=== PATIENT | female | born 1935 | race Caucasian/White ===

== ENCOUNTER 2017-10-01 11:17 | Inpatient (IN) | payer MEDICARE ==
[~2017-10-01] VITALS: Ht 157.5 cm; Wt 62.3 kg
[2017-10-01 11:17] VITALS: BP 153/75; PULSE 77; RESP 20; TEMP 97.7; O2SAT 94
[2017-10-01] MEDS ORDERED: traMADol HCL 50 MG TAB PO ONE (11:30)
[2017-10-01] MEDS ORDERED: PROM25TA10 PO (11:40)
[2017-10-01] MEDS ORDERED: ESCI20TA PO (11:40)
[2017-10-01] MEDS ORDERED: ALPR1TAB3 PO (11:40)
[2017-10-01] MEDS ORDERED: QUET1TAB8 PO (11:40)
--- NOTE | 2017-10-01 11:46 | PD ---
HPI Chief Complaint: Fall Time Seen by Provider: 11:22 Travel History International Travel<30 days: No Contact w/Intl Traveler<30days: No Traveled to known affect area: No History of Present Illness HPI Patient is an 81-year-old female presents the emergency department for evaluation after a mechanical fall. She is coming by her caregiver who states that she ergot her feet tangled when she was turning tripped and fell backwards. She thinks that the patient also hit her head. She has a history of dementia but is fairly well-functioning at baseline carries on conversation is only had mild memory deficits. She normally is very active. The patient complains only of right lower back pain and flank pain. She denies any chest pain shortness of breath abdominal pain nausea or vomiting, denies any neck pain or headache. States symptoms are moderate, low back, context of fall, associated sinus symptoms as above PFSH Past Medical History Narrative Medical Dementia, dementia, heartburn, Past Surgical History Narrative Surgical Appendectomy, left lumpectomy. Social History Tobacco Use: No Allergies-Medications (Allergen,Severity, Reaction): Coded Allergies: shrimp (Verified Allergy, Unknown, 10/01/17) Reported Meds & Prescriptions Reported Meds & Active Scripts Active Reported Quetiapine (Quetiapine Fumarate) 100 Mg Tab 100 Mg PO HS Phenergan (Promethazine HCl) 25 Mg Tablet 25 Mg PO DAILY Escitalopram (Escitalopram Oxalate) 20 Mg Tab 20 Mg PO DAILY Review of Systems Except as stated in HPI: all other systems reviewed are Neg Physical Exam Narrative GENERAL: Well-developed well-nourished no history she is in full spinal package on arrival. SKIN: Focused skin assessment warm/dry. HEAD: Atraumatic. Normocephalic. No garcia signs or raccoon EYES: Pupils equal and round. No scleral icterus. No injection or drainage. ENT: No nasal bleeding or discharge. Mucous membranes pink and moist. NECK: Trachea midline. No JVD. CARDIOVASCULAR: Regular rate and rhythm. No murmur appreciated. RESPIRATORY: No accessory muscle use. Clear to auscultation. Breath sounds equal bilaterally. GASTROINTESTINAL: Abdomen soft, non-tender, nondistended. Hepatic and splenic margins not palpable. MUSCULOSKELETAL: No obvious deformities. No clubbing. No cyanosis. No edema. No appreciable midline CT or L-spine tenderness, no step-off, pelvis is stable. Tremors are atraumatic. Pupils motor and sensory intact distally in all 4 extremities. The patient does have some tenderness on the right flank over the inferior most rib cage which is most significant paraspinally. NEUROLOGICAL: Awake and alert. No obvious cranial nerve deficits. Motor grossly within normal limits. Normal speech. PSYCHIATRIC: Appropriate mood and affect; insight and judgment normal. Data Data Last Documented VS Vital Signs Date Time Temp Pulse Resp B/P (MAP) Pulse Ox O2 Delivery O2 Flow Rate FiO2 10/01/17 14:45 88 18 156/88 (110) 92 Room Air 10/01/17 11:17 97.7 Orders Orders Hip, Uni(Ap&Lat) W Ap Pelvis (10/01/17 ) Chest, Single Ap (10/01/17 ) Ct Brain W/O Iv Contrast(Rout) (10/01/17 ) Ct Cerv Spine W/O Contrast (10/01/17 ) Ct Lumb Spine W/O Contrast (10/01/17 ) Tramadol (Ultram) (10/01/17 11:30) Basic Metabolic Panel (Bmp) (10/01/17 13:58) Complete Blood Count With Diff (10/01/17 13:58) Urinalysis - C+S If Indicated (10/01/17 13:58) Iv Access Insert/Monitor (10/01/17 13:58) Ecg Monitoring (10/01/17 13:58) Oximetry (10/01/17 13:58) Sodium Chloride 0.9% Flush (Ns Flush) (10/01/17 14:00) TLSO (10/01/17 ) Admit Order (Ed Use Only) (10/01/17 ) Labs Laboratory Tests Test 10/01/17 13:25 10/01/17 14:10 Urine Collection Type CLEAN CATCH Urine Color YELLOW Urine Turbidity CLEAR Urine pH 6.5 Urine Specific [place] 1.017 Urine Protein NEG mg/dL Urine Glucose (UA) NEG mg/dL Urine Ketones NEG mg/dL Urine Occult Blood NEG Urine Nitrite NEG Urine Bilirubin NEG Urine Leukocyte Esterase NEG Urine Squamous Epithelial Cells 0-5 /hpf Urine Amorphous Sediment SMALL Urine Mucus FEW /lpf Microscopic Urinalysis Comment CULT NOT INDICATED White Blood Count 11.9 TH/MM3 Red Blood Count 4.74 MIL/MM3 Hemoglobin 13.4 GM/DL Hematocrit 40.9 % Mean Corpuscular Volume 86.3 FL Mean Corpuscular Hemoglobin 28.3 PG Mean Corpuscular Hemoglobin Concent 32.8 % Red Cell Distribution Width 13.8 % Platelet Count 226 TH/MM3 Mean Platelet Volume 7.0 FL Neutrophils (%) (Auto) 83.9 % Lymphocytes (%) (Auto) 9.5 % Monocytes (%) (Auto) 3.8 % Eosinophils (%) (Auto) 0.2 % Basophils (%) (Auto) 2.6 % Neutrophils # (Auto) 10.0 TH/MM3 Lymphocytes # (Auto) 1.1 TH/MM3 Monocytes # (Auto) 0.5 TH/MM3 Eosinophils # (Auto) 0.0 TH/MM3 Basophils # (Auto) 0.3 TH/MM3 CBC Comment DIFF FINAL Differential Comment Blood Urea Nitrogen 22 MG/DL Creatinine 1.10 MG/DL Random Glucose 108 MG/DL Calcium Level 8.5 MG/DL Sodium Level 137 MEQ/L Potassium Level 4.0 MEQ/L Chloride Level 106 MEQ/L Carbon Dioxide Level 24.7 MEQ/L Anion Gap 6 MEQ/L Estimat Glomerular Filtration Rate 48 ML/MIN [facility] Medical Decision Making Medical Screen Exam Complete: Yes Emergency Medical Condition: Yes Differential Diagnosis Rib fracture, back fracture, head injury, neck injury, internal injury unlikely. Narrative Course Patient presented to the emergency department for evaluation of right sided low back pain/flank pain after a mechanical fall. CT head and C-spine negative, CT of the L-spine shows a compression fracture of T12 with some retropulsion, neurologically intact, discussed with Dr. Pires for surgical options would like transfer to the main hospital for consultation, she still having some discomfort, apparently mildly disoriented but still very active at baseline. She is accompanied by family who agree for admission for surgical consultation, orders for TLSO brace have been placed will be placed when she gets to the main hospital, discussed with Dr. Velazquez for admission Diagnosis Primary Impression: T12 compression fracture Admitting Information Admitting Physician Requests: Observation Scripts Calcitonin ([place]) Nasal [place] (Calcitonin ([place] [employer]) Nasal [place]) 200 Units/Act Soln 1 SPRAY NASAL DAILY for Osteoporosis, #3.7 ML 0 Refills Alternate nostrils daily. Prov: Traci Figueredo MD 10/03/17 Hydrocodone/Acetaminophen (Hydrocodone-Acetamin 5-325 mg) 5 Mg-325 Mg Tablet 1 TAB PO Q6H Y for pain , #30 MG Prov: Traci Figueredo MD 10/03/17 Alprazolam (Alprazolam) 1 Mg Tab 1 MG PO BID Y for ANXIETY, #10 TAB 0 Refills Prov: Traci Figueredo MD 10/03/17 Condition: Stable Brando Ortega MD Oct 01, 2017 11:46
--- NOTE | 2017-10-01 12:31 | RADRPT ---
EXAM DATE/TIME: 10/01/2017 11:43 [facility] COMPARISON: No previous studies available for comparison. INDICATIONS : Trauma. Fall. RADIATION DOSE: 64.55 CTDIvol (mGy) MEDICAL HISTORY : Dementia. Carcinoma, breast. SURGICAL HISTORY : Appendectomy. ENCOUNTER: Initial ACUITY: 1 day PAIN SCALE: 0/10 LOCATION: cranial TECHNIQUE: Multiple contiguous axial images were obtained of the head. Using automated exposure control and adj ustment of the mA and/or kV according to patient size, radiation dose was kept as low as reasonably a chievable to obtain optimal diagnostic quality images. DICOM format image data is available electro nically for review and comparison. FINDINGS: CEREBRUM: The ventricles, sulci, and basal cisterns are prominent characteristic of moderate central and cortic al atrophy.. No evidence of midline shift, mass lesion, hemorrhage or acute infarction. No extra-ax ial fluid collections are seen. POSTERIOR FOSSA: The cerebellum and brainstem are intact. The 4th ventricle is midline. The cerebellopontine angle i s unremarkable. EXTRACRANIAL: The visualized portion of the orbits is intact. SKULL: The calvaria is intact. No evidence of skull fracture. CONCLUSION: 1. Moderate central and cortical atrophy. 2. No acute findings in the brain. Michael Dean MD on October 01, 2017 at 12:27 Board Certified Radiologist. This report was verified electronically.
--- NOTE | 2017-10-01 12:42 | RADRPT ---
EXAM DATE/TIME: 10/01/2017 11:54 [facility] COMPARISON: No previous studies available for comparison. INDICATIONS : Posterior right hip pain after fall. MEDICAL HISTORY : None. SURGICAL HISTORY : None. ENCOUNTER: Initial ACUITY: 1 day PAIN SCORE: 8/10 LOCATION: Right hip FINDINGS: The osseous structures are osteopenic. The bony pelvic ring is intact. The primary and secondary trab ecular pattern of the right femoral neck is intact. No fractures seen. The arcuate lines of the sacru m are symmetrical. Several calcified phleboliths in the pelvis. CONCLUSION: No evidence of fracture or dislocation. Michael Dean MD on October 01, 2017 at 12:34 Board Certified Radiologist. This report was verified electronically.
[2017-10-01 12:43] VITALS: BP 165/79; PULSE 76; RESP 20; O2SAT 92
--- NOTE | 2017-10-01 12:43 | RADRPT ---
EXAM DATE/TIME: 10/01/2017 11:54 [facility] COMPARISON: No previous studies available for comparison. INDICATIONS : Chest pain after fall. MEDICAL HISTORY : None. SURGICAL HISTORY : None. ENCOUNTER: Initial ACUITY: 1 day PAIN SCORE: 3/10 LOCATION: Bilateral chest FINDINGS: A single view of the chest demonstrates the lungs to be symmetrically aerated without evidence of mas s, infiltrate or effusion. No evidence of pneumothorax. The cardiomediastinal contours are unremarka ble. Osseous structures are intact. CONCLUSION: The lungs are clear. Michael Dean MD on October 01, 2017 at 12:40 Board Certified Radiologist. This report was verified electronically.
--- NOTE | 2017-10-01 13:03 | RADRPT ---
EXAM DATE/TIME: 10/01/2017 11:43 [facility] COMPARISON: No previous studies available for comparison. INDICATIONS : Trauma. Fall. RADIATION DOSE: 26.31 CTDIvol (mGy) MEDICAL HISTORY : Dementia. Carcinoma, breast. SURGICAL HISTORY : Appendectomy. ENCOUNTER: Initial ACUITY: 1 day PAIN SCALE: 0/10 LOCATION: neck TECHNIQUE: Volumetric scanning of the cervical spine was performed. Multiplanar reconstructions in the sagittal, coronal and oblique axial planes were performed. Using automated exposure control and adjustment o f the mA and/or kV according to patient size, radiation dose was kept as low as reasonably achievable to obtain optimal diagnostic quality images. DICOM format image data is available electronically f or review and comparison. FINDINGS: There is normal alignment of the vertebral bodies of the cervical spine and maintenance of vertebral body height. No evidence of spondylolisthesis. The facet joints are normal abdomen without evidence o f locked or perched facets. The atlantoaxial articulation is intact.. C2-C3: No fracture seen. The neural foramina are patent. C3-C4: No fracture seen. The neural foramina are patent. C4-C5: No fracture seen. The neural foramina are patent. C5-C6: No fracture seen. Moderate severity left-sided bony neural foraminal stenosis. C6-C7: No fracture seen. Moderate bilateral bony neural foraminal stenosis. C7-T1: No fracture seen. The neural foramina are patent. CONCLUSION: No evidence of fracture or spondylolisthesis. Mild to moderate arthrosis with neural foraminal stenos is. Michael Dean MD on October 01, 2017 at 12:54 Board Certified Radiologist. This report was verified electronically.
--- NOTE | 2017-10-01 13:07 | RADRPT ---
EXAM DATE/TIME: 10/01/2017 11:47 [facility] COMPARISON: No previous studies available for comparison. INDICATIONS : Trauma. Fall. Low back pain. RADIATION DOSE: 36.40 CTDIvol (mGy) MEDICAL HISTORY : Dementia. Carcinoma, breast. SURGICAL HISTORY : Appendectomy. ENCOUNTER: Initial ACUITY: 1 day PAIN SCALE: 10/10 LOCATION: Lumbar spine. TECHNIQUE: Volumetric scanning of the lumbar spine was performed. Multiplanar reconstructions in the sagittal, coronal and oblique axial planes were performed. Using automated exposure control and adjustment of the mA and/or kV according to patient size, radiation dose was kept as low as reasonably achievable t o obtain optimal diagnostic quality images. DICOM format image data is available electronically for review and comparison. FINDINGS: There is diffuse osteopenia with prominent vertical striations the trabecular pattern throughout the lumbar spine. There is a 50% compression fracture of the T12 vertebral body involving the superior en dplate and both anterior and posterior cortex. There is some mild posterior displacement of the poste rior superior cortex, causing approximately 4 mm indentation on the thecal sac. Several fracture line s extend to the junction with the left pedicle. T12-L1: There is flattening of the ventral margin of the thecal sac due to the impression fracture, left more prominent than on the right. The neural foramen remain patent. L1-L2: The thecal sac has a normal diameter. No evidence of disc bulge or protrusion. The neural foramina are patent bilaterally. L2-L3: The thecal sac has a normal diameter. No evidence of disc bulge or protrusion. The neural foramina are patent bilaterally. L3-L4: Broad-based bulging of the disc, more prominent left paracentral on the right side. No fracture seen. L4-L5: Broad-based bulging of the disc flattens the ventral margin of the thecal sac and extends into the ne uroforamen bilaterally. No fracture seen. L5-S1: Broad-based bulging of the disc contained within the epidural fat and there is no deformity of the th ecal sac and deviation of the S1 nerve roots. CONCLUSION: 1. 50% compression fracture of the T12 vertebral body extending into the junction with the left pedic le. 4 mm retropulsion of the posterior cortex of T12. 2. Mild disc bulging L3-S1. Michael Dean MD on October 01, 2017 at 13:00 Board Certified Radiologist. This report was verified electronically.
[2017-10-01] MEDS ORDERED: SODIUM CHLORIDE 0.9% FLUSH 10 ML FLUSH IV FLUSH PRN (14:00)
[2017-10-01 14:18] LABS: BASOPHIL # 0.3 TH/MM3 (0-0.2); BASOPHIL % 2.6 % (0.0-2.0); EOSINOPHIL % 0.2 % (0.0-4.0); HEMATOCRIT 40.9 % (35.0-46.0); HEMOGLOBIN 13.4 GM/DL (11.6-15.3); LYMPH % 9.5 % (9.0-44.0); LYMPHOCYTE # 1.1 TH/MM3 (1.0-4.8); MEAN CELL VOLUME 86.3 FL (80.0-100.0); MEAN CORPUSCULAR HEMOGLOBIN 28.3 PG (27.0-34.0); MEAN CORPUSCULAR HGB CONC 32.8 % (32.0-36.0); MONO % 3.8 % (0.0-8.0); MONOCYTE # 0.5 TH/MM3 (0-0.9); NEUT % 83.9 % (16.0-70.0); PLATELET COUNT 226 TH/MM3 (150-450); RED BLOOD COUNT 4.74 MIL/MM3 (4.00-5.30); RED CELL DISTRIBUTION WIDTH 13.8 % (11.6-17.2); WHITE BLOOD COUNT 11.9 TH/MM3 (4.0-11.0)
[2017-10-01 14:29] LABS: BICARBONATE 24.7 MEQ/L (21.0-32.0); CALCIUM 8.5 MG/DL (8.5-10.1)
[2017-10-01 14:33] LABS: CREATININE 1.1 MG/DL (0.50-1.00)
[2017-10-01 14:43] VITALS: O2SAT 92
[2017-10-01 14:45] VITALS: BP 156/88; PULSE 88; RESP 18; O2SAT 92
[2017-10-01 14:47] LABS: BILIRUBIN, URINE NEG (NEG); BLOOD, URINE NEG (NEG); GLUCOSE,URINE NEG (NEG); KETONE, URINE NEG (NEG); NITRITE,URINE NEG (NEG); PH, URINE 6.5 (5.0-8.5); URINE LEUKOCYTE ESTERASE NEG (NEG)
[2017-10-01 14:53] LABS: AMORPHOUS SEDIMENT, URINE SMALL; SQUAMOUS EPITHELIAL CELL URINE 0-5 /hpf (0-5); URINE COLOR YELLOW (YELLW/STRAW)
[2017-10-01 14:54] LABS: MUCUS URINE FEW /lpf (OCC)
[2017-10-01 16:14] VITALS: BP 149/79; PULSE 81; RESP 18; O2SAT 92
--- NOTE | 2017-10-01 16:57 | HHI.HP ---
[facility] Unknown Admission Diagnosis Fall, T12 compression fracture. Diagnoses: Chief Complaint: fall Travel History International Travel<30 Days: No Contact w/Intl Traveler <30 Da: No Traveled to Known Affected Are: No History of Present Illness 81 y/o WF being admitted with a traumatic compression fracture. Patient was brought in by ambulance at the request of the family. Patient was in her usual state of health until sometime earlier today when she was trying to ambulate and lost her footing and fell backwards onto her back striking her head on the floor. This was a witnessed fall by a family member who says that the patient did not lose consciousness at that the patient did yell out in pain. Further family did come over they attempted to move the patient but she yelled out in pain and they decided to leave her on the floor and await until the ambulance transported her. They noted that she yelled out more in pain when she was being manipulated to be placed on the stretcher. Patient denies any urinary or fecal incontinence. She reports intact sensation on her lower extremities. Patient denies having any chest pain during before after the incident and she admits that this was a mechanical fall that she simply lost her balance. She denies feeling weak in her legs. Family denies any frequent history of falling. Family member lines up the patient's medications for her including Phenergan, cervical, alprazolam, and escitalopram. Review of Systems Except as stated in HPI: all other systems reviewed are Neg Past Family Social History Past Medical History anxiety, dementia Allergies: Coded Allergies: shrimp (Verified Allergy, Unknown, 10/01/17) Family History No family history of vertebral compression fractures Social History No smoking history. Lives with the family member. Physical Exam Vital Signs Vital Signs Date Time Temp Pulse Resp B/P (MAP) Pulse Ox O2 Delivery O2 Flow Rate FiO2 10/01/17 16:14 81 18 149/79 (102) 92 Room Air 10/01/17 14:45 88 18 156/88 (110) 92 Room Air 10/01/17 14:43 92 Room Air 2/8/18 12:43 76 20 165/79 (107) 92 Room Air 10/01/17 11:17 97.7 77 20 153/75 (101) 94 10/01/17 11:17 94 Room Air Physical Exam VS: afebrile GENERAL: Elderly white female, lying in bed, mild diffuse tremoring SKIN: Warm and dry. EYES: No scleral icterus. No injection or drainage. ENT: No nasal bleeding or discharge. Mucous membranes pink and moist. CARDIOVASCULAR: Regular rate and rhythm. no murmurs RESPIRATORY: No accessory muscle use. Clear to auscultation. Breath sounds equal bilaterally. GASTROINTESTINAL: Abdomen soft, non-tender, nondistended. Extremities: No clubbing, cyanosis, or edema. No obvious deformities. MUSCULOSKELETAL: adequate muscle bulk and tone for age and habitus; patient is able to demonstrate active straight leg raising bilaterally up to 40 at which point she stops due to pain. She has intact sensation to pinprick over bilateral lower extremities NEUROLOGICAL: Awake and alert. No obvious cranial nerve deficits. No facial droop nor slurred speech noted. PSYCHIATRIC: Appropriate mood and affect; insight and judgment normal. Laboratory Laboratory Tests Test 10/01/17 13:25 10/01/17 14:10 Urine Collection Type CLEAN CATCH Urine Color YELLOW Urine Turbidity CLEAR Urine pH 6.5 Urine Specific [place] 1.017 Urine Protein NEG Urine Glucose (UA) NEG Urine Ketones NEG Urine Occult Blood NEG Urine Nitrite NEG Urine Bilirubin NEG Urine Leukocyte Esterase NEG Urine Squamous Epithelial Cells 0-5 Urine Amorphous Sediment SMALL Urine Mucus FEW Microscopic Urinalysis Comment CULT NOT INDICATED White Blood Count 11.9 Red Blood Count 4.74 Hemoglobin 13.4 Hematocrit 40.9 Mean Corpuscular Volume 86.3 Mean Corpuscular Hemoglobin 28.3 Mean Corpuscular Hemoglobin Concent 32.8 Red Cell Distribution Width 13.8 Platelet Count 226 Mean Platelet Volume 7.0 Neutrophils (%) (Auto) 83.9 Lymphocytes (%) (Auto) 9.5 Monocytes (%) (Auto) 3.8 Eosinophils (%) (Auto) 0.2 Basophils (%) (Auto) 2.6 Neutrophils # (Auto) 10.0 Lymphocytes # (Auto) 1.1 Monocytes # (Auto) 0.5 Eosinophils # (Auto) 0.0 Basophils # (Auto) 0.3 CBC Comment DIFF FINAL Differential Comment Blood Urea Nitrogen 22 Creatinine 1.10 Random Glucose 108 Calcium Level 8.5 Sodium Level 137 Potassium Level 4.0 Chloride Level 106 Carbon Dioxide Level 24.7 Anion Gap 6 Estimat Glomerular Filtration Rate 48 Result Diagram: 10/01/17 1410 10/01/17 1410 Imaging Last Impressions Lumbar Spine CT 10/01/17 0000 Signed Impressions: Service Date/Time: September 11:47 - CONCLUSION: 1. 50%% compression fracture of the T12 vertebral body extending into the junction with the left pedicle. 4 mm retropulsion of the posterior cortex of T12. 2. Mild disc bulging L3-S1. Michael Dean MD Hip and Pelvis X-Ray 10/01/17 0000 Signed Impressions: Service Date/Time: September 11:54 - CONCLUSION: No evidence of fracture or dislocation. Michael Dean MD Head CT 10/01/17 0000 Signed Impressions: Service Date/Time: September 11:43 - CONCLUSION: 1. Moderate central and cortical atrophy. 2. No acute findings in the brain. Michael Dean MD Chest X-Ray 10/01/17 0000 Signed Impressions: Service Date/Time: September 11:54 - CONCLUSION: The lungs are clear. Michael Dean MD Cervical Spine CT 10/01/17 0000 Signed Impressions: Service Date/Time: September 11:43 - CONCLUSION: No evidence of fracture or spondylolisthesis. Mild to moderate arthrosis with neural foraminal stenosis. Michael Dean MD Caprini VTE Risk Assessment Caprini VTE Risk Assessment: Mod/High Risk (score >= 2) Caprini Risk Assessment Model Point Value = 1 Point Value = 2 Point Value = 3 Point Value = 5 Age 41-60 Minor surgery BMI > 25 kg/m2 Swollen legs Varicose veins or History of unexplained or recurrent spontaneous Oral contraceptives or hormone replacement Sepsis (< 1 month) Serious lung disease, including pneumonia (< 1 month) Abnormal pulmonary function Acute myocardial infarction Congestive heart failure (< 1 month) History of inflammatory bowel disease Medical patient at bed rest Age 61-74 Arthroscopic surgery Major open surgery (> 45 min) Laparoscopic surgery (> 45 min) Malignancy Confined to bed (> 72 hours) Immobilizing plaster cast Central venous access Age >= 75 History of VTE Family history of VTE Factor V Leiden Prothrombin [id number] Lupus anticoagulant Anticardiolipin antibodies Elevated serum homocysteine Heparin-induced thrombocytopenia Other congenital or acquired thrombophilia Stroke (< 1 month) Elective arthroplasty Hip, pelvis, or leg fracture Acute spinal cord injury (< 1 month) Prophylaxis Regimen Total Risk Factor Score Risk Level Prophylaxis Regimen 0-1 Low Early ambulation 2 Moderate Order ONE of the following: *Sequential Compression Device (SCD) *Heparin 5000 units SQ BID 3-4 Higher Order ONE of the following medications: *Heparin 5000 units SQ TID *Enoxaparin/Lovenox 40 mg SQ daily (WT < 150 kg, CrCl > 30 mL/min) *Enoxaparin/Lovenox 30 mg SQ daily (WT < 150 kg, CrCl > 10-29 mL/min) *Enoxaparin/Lovenox 30 mg SQ BID (WT < 150 kg, CrCl > 30 mL/min) AND/OR *Sequential Compression Device (SCD) 5 or more Highest Order ONE of the following medications: *Heparin 5000 units SQ TID (Preferred with Epidurals) *Enoxaparin/Lovenox 40 mg SQ daily (WT < 150 kg, CrCl > 30 mL/min) *Enoxaparin/Lovenox 30 mg SQ daily (WT < 150 kg, CrCl > 10-29 mL/min) *Enoxaparin/Lovenox 30 mg SQ BID (WT < 150 kg, CrCl > 30 mL/min) AND *Sequential Compression Device (SCD) Assessment and Plan Assessment and Plan 81-year-old female being admitted for acute traumatic thoracic 50% compression fracture w/ no evidence of spinal cord compression - Patient will be transferred to the main hospital per neurosurgery, consulting neurosurgery. Pain control for now, holding off of NSAIDs in case of possible intervention. - per radiology read: "There is flattening of the ventral margin of the thecal sac due to the impression fracture, left more prominent than on the right. The neural foramen remain patent." - Fall precautions; can consult physical therapy and occupational therapy once cleared by neurosurgery - Bed rest until evaluated by neurosurgery - I independently review the chest x-ray which shows no acute infiltrate. Remaining imaging including head CT shows no acute fractures or hemorrhages. - tramadol and nasal calcitonin for pain Resume home medications of Xanax, Phenergan, escitalopram, and Seroquel. SCDs, no pharmacological anticoagulation in light of possible procedure. Physician Certification 2 Midnight Certification Type: Admission for Inpatient Services Order for Inpatient Services The services are ordered in accordance with Medicare regulations or non- Medicare payer requirements, as applicable. In the case of services not specified as inpatient-only, they are appropriately provided as inpatient services in accordance with the 2-midnight benchmark. Estimated LOS (days): 2 2 days is the estimated time the patient will need to remain in the hospital, assuming treatment plan goals are met and no additional complications. Post-Hospital Plan: Not yet determined Chan Spencer MD Oct 01, 2017 16:57
[2017-10-01] MEDS: traMADol HCL 50 MG TAB PO PRN ×2 (17:16→22:34)
[2017-10-01] MEDS: SODIUM CHLOR 0.9% 1000 ML INJ 1,000 ML IV SCH ×2 (17:20→20:04)
[2017-10-01 19:50] VITALS: BP 147/70; PULSE 85; RESP 20; TEMP 98.5; O2SAT 94
[2017-10-01] MEDS: ALPRAZolam 1 MG TAB PO PRN (21:00)
[2017-10-01] MEDS: QUEtiapine FUMARATE 100 MG TAB PO SCH (21:00)
[2017-10-02] VITALS: BP 132/82; PULSE 87; RESP 20; TEMP 98; O2SAT 98
[2017-10-02] MEDS ORDERED: ACETAMINOPHEN/HYDROcodone 325 MG/5 MG TAB PO ONE (00:45)
[2017-10-02 04:11] VITALS: BP 95/51; PULSE 78; RESP 20; TEMP 97; O2SAT 92
[2017-10-02] MEDS: CALCITONIN SALM 200 UNIT/SPRAY 3.7 ML BTLN NASAL SCH (08:13)
[2017-10-02] MEDS: PROMETHAZINE HCL 25 MG TAB PO SCH (08:13)
[2017-10-02 08:34] VITALS: BP 99/59; PULSE 72; RESP 16; TEMP 98.2; O2SAT 94
[2017-10-02 12:40] VITALS: BP 103/62; PULSE 73; RESP 16; TEMP 97.5; O2SAT 16
--- NOTE | 2017-10-02 13:04 | RADRPT ---
EXAM DATE/TIME: 10/02/2017 11:32 [place] COMPARISON: No previous studies available for comparison. INDICATIONS : Pain. Fall. MEDICAL HISTORY : Carcinoma, breast. Dementia. SURGICAL HISTORY : Breast lumpectomy. ENCOUNTER: Initial ACUITY: 1 day PAIN SCORE: 5/10 LOCATION: [facility] TECHNIQUE: Multiplanar multisequence MRI of the thoracic spine was performed. FINDINGS: Sagittal T1, T2 and inversion recovery images show a severe compression fracture through the T12 vert ebral body with marked loss of vertebral body heights. Vertebral body edema suggesting acute or subac sycuan injury. 3-5 mm retropulsed fragment encroaches on the anterior epidural space but there does not appear to result in significant spinal stenosis. Spinal canal is adequate all remaining levels. Bilat eral small pleural effusions with concomitant atelectatic changes on the right. Chronic appearing wed ge deformity of T4. T1-T2: Normal. T2-T3: The thecal sac has a normal diameter. No evidence of disc bulge or protrusion. T3-T4: The thecal sac has a normal diameter. No evidence of disc bulge or protrusion. T4-T5: The thecal sac has a normal diameter. No evidence of disc bulge or protrusion. T5-T6: The thecal sac has a normal diameter. No evidence of disc bulge or protrusion. T6-T7: The thecal sac has a normal diameter. No evidence of disc bulge or protrusion. T7-T8: The thecal sac has a normal diameter. No evidence of disc bulge or protrusion. T8-T9: The thecal sac has a normal diameter. No evidence of disc bulge or protrusion. T9-T10: The thecal sac has a normal diameter. No evidence of disc bulge or protrusion. T10-T11: The thecal sac has a normal diameter. No evidence of disc bulge or protrusion. T11-T12: The thecal sac has a normal diameter. No evidence of disc bulge or protrusion. T12-L1: Severe compression fracture of T12 with regional edema. Encroachment on the spinal canal with no obvi ous central nerve root or cord compromise. CONCLUSION: 1. Acute or subacute compression fracture of T12 with a 3-5 mm retropulsed fragment. Encroaches on th e intrathecal space but does not result in cord compromise. 2. Chronic appearing wedge deformity of T4. 3. Spinal canal is adequate all remaining levels. 4. Small bilateral pleural effusions, right greater than left with concomitant atelectatic changes in the right base. Moises Ray MD on October 02, 2017 at 12:57 Board Certified Radiologist. This report was verified electronically.
--- NOTE | 2017-10-02 13:23 | HHI.PR ---
Subjective Remarks Follow-up for fall and T12 compression fracture. Patient is resting in bed. No acute concerns. Son is at bedside. No fever or chills. Waiting for neurosurgery evaluation. Objective Vitals Vital Signs Date Time Temp Pulse Resp B/P (MAP) Pulse Ox O2 Delivery O2 Flow Rate FiO2 10/02/17 12:40 97.5 73 16 103/62 (76) 16 10/02/17 08:34 98.2 72 16 99/59 (72) 94 10/02/17 04:11 97.0 78 20 95/51 (66) 92 10/02/17 00:00 98.0 87 20 132/82 (99) 98 10/01/17 19:50 98.5 85 20 147/70 (95) 94 10/01/17 18:40 10/01/17 16:14 81 18 149/79 (102) 92 Room Air 10/01/17 14:45 88 18 156/88 (110) 92 Room Air 10/01/17 14:43 92 Room Air I/O 10/01/17 10/01/17 10/01/17 10/02/17 10/02/17 10/02/17 07:00 15:00 23:00 07:00 15:00 23:00 Intake Total 50 ml 409 ml Output Total 600 ml Balance -600 ml 50 ml 409 ml Intake IV Total 50 ml 409 ml Output Urine Total 600 ml # Voids 1 Result Diagram: 10/01/17 1410 10/01/17 1410 Imaging Last Impressions Lumbar Spine CT 10/01/17 0000 Signed Impressions: Service Date/Time: September 11:47 - CONCLUSION: 1. 50%% compression fracture of the T12 vertebral body extending into the junction with the left pedicle. 4 mm retropulsion of the posterior cortex of T12. 2. Mild disc bulging L3-S1. Michael Dean MD Hip and Pelvis X-Ray 10/01/17 0000 Signed Impressions: Service Date/Time: September 11:54 - CONCLUSION: No evidence of fracture or dislocation. Michael Dean MD Head CT 10/01/17 0000 Signed Impressions: Service Date/Time: September 11:43 - CONCLUSION: 1. Moderate central and cortical atrophy. 2. No acute findings in the brain. Michael Dean MD Chest X-Ray 10/01/17 0000 Signed Impressions: Service Date/Time: September 11:54 - CONCLUSION: The lungs are clear. Michael Dean MD Cervical Spine CT 10/01/17 0000 Signed Impressions: Service Date/Time: September 11:43 - CONCLUSION: No evidence of fracture or spondylolisthesis. Mild to moderate arthrosis with neural foraminal stenosis. Michael Dean MD Objective Remarks GENERAL: Alert, NAD. SKIN: Warm and dry. HEAD: Normocephalic. EYES: No scleral icterus. No injection or drainage. NECK: Supple, trachea midline. No JVD or lymphadenopathy. CARDIOVASCULAR: Regular rate and rhythm without murmurs, gallops, or rubs. RESPIRATORY: Breath sounds equal bilaterally. No accessory muscle use. GASTROINTESTINAL: Abdomen soft, non-tender, nondistended. MUSCULOSKELETAL: No cyanosis, or edema. Able to move all extremities. BACK: Nontender without obvious deformity. No CVA tenderness. Procedures None A/P Problem List: (1) Anxiety and depression ICD Code: F41.8 - Other specified anxiety disorders (2) T12 compression fracture ICD Code: S22.080A - Wedge compression fracture of T11-T12 vertebra, initial encounter for closed fracture Assessment and Plan 81-year-old female being admitted for acute traumatic thoracic 50% compression fracture w/ no evidence of spinal cord compression - Fall - T12 compression fracture - severe. - MRI thoracolumbar images reviewed by me - shows T12 compression fracture with edema. - No spinal stenosis - D/C Tramadol 50 mg every 6 hours when necessary. - Will use low dose [place] and acetaminophen PRN - Continue calcitonin 1 spray nasal daily - Neurosurgery consult pending. Patient will also likely need TLSO brace - PT and OT consulted. - Discussed with case management regarding referral to [facility] - Anxiety, depression - Continue Seroquel 100 mg daily at bedtime, Xanax 1 mg twice a day. - Continue escitalopram 20 mg by mouth daily Full code. SCDs. Consider pharmacological DVT prophylaxis if prolonged hospitalization is expected. Sharan Cates DO Oct 02, 2017 1:23 pm
[2017-10-02] MEDS ORDERED: ACETAMINOPHEN 500 MG CPLT PO PRN (13:30)
[2017-10-02] MEDS: ACETAMINOPHEN/HYDROcodone 325 MG/5 MG TAB PO PRN ×2 (14:13→21:07)
[2017-10-02] MEDS: SODIUM CHLOR 0.9% 1000 ML INJ 1,000 ML IV SCH ×2 (14:13→21:04)
[2017-10-02 16:50] VITALS: BP 140/70; PULSE 91; RESP 18; TEMP 97.7
[2017-10-02 20:00] VITALS: BP 161/83; PULSE 101; RESP 20; TEMP 97.2; O2SAT 90
[2017-10-02] MEDS ORDERED: CALCIUM CARBONATE 500 MG CHEWABLE TAB CHEW PRN (20:15)
--- NOTE | 2017-10-02 20:18 | MB ---
cc: FELISA BARTON M.D. DATE OF CONSULTATION: 10/02/2017. REASON FOR CONSULTATION: Low back pain with T12 fractures. HISTORY OF PRESENT ILLNESS: 81-year-old female was brought into the [facility] Emergency Room yesterday morning after a fall. She states she tripped and fell backwards although did not lose consciousness. Complains of severe lower thoracic back pain which radiates around the flank area. Denies any numbness or paresthesias in the lower extremities or any incontinence or weakness. Initially had some nausea and vomiting and headache but this has resolved and the back pain has improved but still is very painful to move. Workup included a lumbar spine CT scan which reveals a moderate T12 vertebral body compression fracture with slight retropulsion of the spinal canal. Cervical spine CT scan is negative. CT of the head is also negative for any acute findings. She was transferred [facility] and subsequently today has also received a thoracic spine MRI scan which does confirm this acute T12 moderate vertebral body compression fracture with slight retropulsion with overall mild spinal stenosis. No cord compression is noted. A chronic-appearing compression fracture at the T4 level is also noted. There are some pleural effusions with atelectasis noted also in the lungs. PAST MEDICAL HISTORY: 1. Dementia. 2. Anxiety. ALLERGIES: 1. SHRIMP. MEDICATIONS: 1. Alprazolam 1 milligram twice a day PRN. 2. Escitalopram 20 milligrams daily. 3. Phenergan 25 milligrams daily. 4. Quetiapine fumarate 100 milligrams at bedtime. SOCIAL HISTORY: She is a and resides with her son and tank filler who are with her in the hospital. She does not smoke cigarettes or drink alcohol. FAMILY HISTORY: Unremarkable. REVIEW OF SYSTEMS: Pertinent positives as mentioned in the history of present illness otherwise negative. LABORATORY FINDINGS White blood cell count 11.9, hemoglobin 13.4, platelet count is 226,000. Sodium 137, potassium 4.0, BUN 22, creatinine 1.0, glucose 108. PHYSICAL EXAMINATION: GENERAL CONDITION: This is an elderly female who is lying in bed in no distress. VITAL SIGNS: Temperature 98.2, pulse is 73, respiratory rate 16, blood pressure 103/62, oxygen saturation 94% on room air. HEAD: No garcia or raccoon sign. Normocephalic and atraumatic. NECK: The neck is supple with no guarding or rigidity. Trachea is midline. No lymphadenopathy. CHEST: Clear to auscultation bilaterally. HEART: Regular rate and rhythm. Normal S1 and S2. ABDOMEN: Abdomen soft and nontender. No hepatosplenomegaly. EXTREMITIES: No cyanosis, edema or deformities. SKIN: No abrasions or rashes or skin breakdown or pustules noted. NEUROLOGICAL EXAMINATION: She is awake, alert. Cranial nerves are grossly intact. Motor strength 5/5 in the upper and lower extremities. Negative Babinski. Speech is fluent. Light touch sensation intact. Normal reflexes. IMPRESSION: 1. Acute T12 moderate vertebral body compression fracture with slight retropulsion and chronic T4 vertebral body fracture without any significant stenosis. 2. Dementia. PLAN: 1. I have recommended pain control along with the use of a TLSO brace when out of bed for the T4 fracture. 2. She will benefit from physical therapy and rehabilitation until the pain is controlled and she is more ambulatory without requiring assistance. 3. At this time, the plan is for conservative management with a brace and the patient and family understand that the fracture may take three to four months to heal. 4. Recommend DVT prophylaxis also. 5. Once her pain is adequately controlled, then she can be discharged either rehab or home with physical therapy and follow up in the office in six weeks with thoracic spine x-rays. All their questions were answered and the patient and her son understand and are in agreement. MD ATIF Laurent/MARCELINA /4:17 PM /7:47 PM
[2017-10-02] MEDS: ALPRAZolam 1 MG TAB PO PRN (20:59)
[2017-10-02] MEDS: QUEtiapine FUMARATE 100 MG TAB PO SCH (20:59)
[2017-10-03] VITALS: BP 117/64; PULSE 89; RESP 18; TEMP 98.6; O2SAT 94
[2017-10-03 03:55] VITALS: BP 153/80; PULSE 99; RESP 20; TEMP 97.6; O2SAT 91
[2017-10-03 05:00] VITALS: O2SAT 94
[2017-10-03 08:00] VITALS: BP 157/74; PULSE 82; RESP 16; TEMP 98.5; O2SAT 92
[2017-10-03] MEDS: PROMETHAZINE HCL 25 MG TAB PO SCH (08:43)
[2017-10-03] MEDS ORDERED: ESCITALOPRAM OXALATE 20 MG TAB PO SCH (09:00)
[2017-10-03] MEDS: ACETAMINOPHEN/HYDROcodone 325 MG/5 MG TAB PO PRN (09:44)
[2017-10-03] MEDS: CALCITONIN SALM 200 UNIT/SPRAY 3.7 ML BTLN NASAL SCH (10:58)
[2017-10-03] MEDS ORDERED: HYDR-3516 PO (11:14)
[2017-10-03] MEDS ORDERED: CALC200S NASAL (11:14)
[2017-10-03] MEDS ORDERED: ALPR1TAB3 PO (11:14)
--- NOTE | 2017-10-03 11:16 | HHI.DS ---
Discharge Summary Admission Date Oct 01, 2017 at 15:20 Discharge Date: Oct 03, 2017 Admitting Diagnosis Fall, T12 compression fracture. (1) Anxiety and depression ICD Code: F41.8 - Other specified anxiety disorders (2) T12 compression fracture ICD Code: S22.080A - Wedge compression fracture of T11-T12 vertebra, initial encounter for closed fracture Procedures None Brief History - From Admission 81 y/o WF being admitted with a traumatic compression fracture. Patient was brought in by ambulance at the request of the family. Patient was in her usual state of health until sometime earlier today when she was trying to ambulate and lost her footing and fell backwards onto her back striking her head on the floor. This was a witnessed fall by a family member who says that the patient did not lose consciousness at that the patient did yell out in pain. Further family did come over they attempted to move the patient but she yelled out in pain and they decided to leave her on the floor and await until the ambulance transported her. They noted that she yelled out more in pain when she was being manipulated to be placed on the stretcher. Patient denies any urinary or fecal incontinence. She reports intact sensation on her lower extremities. Patient denies having any chest pain during before after the incident and she admits that this was a mechanical fall that she simply lost her balance. She denies feeling weak in her legs. Family denies any frequent history of falling. Family member lines up the patient's medications for her including Phenergan, cervical, alprazolam, and escitalopram. CBC/BMP: 10/01/17 1410 10/01/17 1410 Significant Findings Laboratory Tests Test 10/01/17 13:25 10/01/17 14:10 Urine Mucus FEW /lpf (OCC) White Blood Count 11.9 TH/MM3 (4.0-11.0) Neutrophils (%) (Auto) 83.9 % (16.0-70.0) Basophils (%) (Auto) 2.6 % (0.0-2.0) Neutrophils # (Auto) 10.0 TH/MM3 (1.8-7.7) Basophils # (Auto) 0.3 TH/MM3 (0-0.2) Blood Urea Nitrogen 22 MG/DL (7-18) Creatinine 1.10 MG/DL (0.50-1.00) Random Glucose 108 MG/DL (74-106) Estimat Glomerular Filtration Rate 48 ML/MIN (>89) Imaging Last Impressions Thoracic Spine MRI 10/02/17 0000 Signed Impressions: Service Date/Time: Monday, October 02, 2017 11:32 - CONCLUSION: 1. Acute or subacute compression fracture of T12 with a 3-5 mm retropulsed fragment. Encroaches on the intrathecal space but does not result in cord compromise. 2. Chronic appearing wedge deformity of T4. 3. Spinal canal is adequate all remaining levels. 4. Small bilateral pleural effusions, right greater than left with concomitant atelectatic changes in the right base. Moises Ray MD Lumbar Spine CT 10/01/17 0000 Signed Impressions: Service Date/Time: September 11:47 - CONCLUSION: 1. 50%% compression fracture of the T12 vertebral body extending into the junction with the left pedicle. 4 mm retropulsion of the posterior cortex of T12. 2. Mild disc bulging L3-S1. Michael Dean MD Hip and Pelvis X-Ray 10/01/17 Signed Impressions: Service Date/Time: September 11:54 - CONCLUSION: No evidence of fracture or dislocation. Michael Dean MD Head CT 10/01/17 0000 Signed Impressions: Service Date/Time: September 11:43 - CONCLUSION: 1. Moderate central and cortical atrophy. 2. No acute findings in the brain. Michael Dean MD Chest X-Ray 10/01/17 0000 Signed Impressions: Service Date/Time: September 11:54 - CONCLUSION: The lungs are clear. Michael Dean MD Cervical Spine CT 10/01/17 0000 Signed Impressions: Service Date/Time: September 11:43 - CONCLUSION: No evidence of fracture or spondylolisthesis. Mild to moderate arthrosis with neural foraminal stenosis. Michael Dean MD PE at Discharge GENERAL: Alert, NAD. SKIN: Warm and dry. HEAD: Normocephalic. EYES: No scleral icterus. No injection or drainage. NECK: Supple, trachea midline. No JVD or lymphadenopathy. CARDIOVASCULAR: Regular rate and rhythm without murmurs, gallops, or rubs. RESPIRATORY: Breath sounds equal bilaterally. No accessory muscle use. GASTROINTESTINAL: Abdomen soft, non-tender, nondistended. MUSCULOSKELETAL: No cyanosis, or edema. Able to move all extremities. BACK: Nontender without obvious deformity. No CVA tenderness. Pt update on day of discharge Feels good Pain is controlled by meds./ No n/v/d/c. Denies chest pain or sob. No cough , fever or chills. Hospital Course 81-year-old female being admitted for acute traumatic thoracic 50% compression fracture w/ no evidence of spinal cord compression - Fall - T12 compression fracture - severe. - MRI thoracolumbar images reviewed by wa - shows T12 compression fracture with edema. - No spinal stenosis - D/C Tramadol 50 mg every 6 hours when necessary. - Will use low dose [place] and acetaminophen PRN - Continue calcitonin 1 spray nasal daily - Neurosurgery consult recommends TLSO brace, pain management to f./u as OP - PT and OT consulted recommends rehab - Discussed with case management regarding referral to [facility], [facility] - Anxiety, depression - Continue Seroquel 100 mg daily at bedtime, Xanax 1 mg twice a day. - Continue escitalopram 20 mg by mouth daily Full code. SCDs. Consider pharmacological DVT prophylaxis if prolonged hospitalization is expected. Improved DC in stable condition to [facility] to follow up as OP with PCP and consultants Pt Condition on Discharge: Stable Discharge Disposition: Rehab Inpatient Discharge Time: > 30 minutes Discharge Instructions DIET: Follow Instructions for: As Tolerated, No Restrictions Activities you can perform: Weight Bearing as Mitul Follow up Referrals: Appointment for Follow Up - 6 Weeks PCP Follow-up - 2-3 Days New Orders: X-RAY SPINE THORACIC COMPLETE - 6 Weeks @ [facility] - Other New Medications: Calcitonin ([place]) Nasal [place] (Calcitonin ([place]) Nasal [place]) 200 Units/Act Soln 1 SPRAY NASAL DAILY for Osteoporosis, #3.7 ML 0 Refills Alternate nostrils daily. Hydrocodone/Acetaminophen (Hydrocodone-Acetamin 5-325 mg) 5 Mg-325 Mg Tablet 1 TAB PO Q6H PRN for pain , #30 MG Continued Medications: Alprazolam (Alprazolam) 1 Mg Tab 1 MG PO BID PRN for ANXIETY, #10 TAB 0 Refills (This prescription has been renewed) Escitalopram (Escitalopram) 20 Mg Tab 20 MG PO DAILY, #30 TAB 0 Refills Promethazine (Phenergan) 25 Mg Tablet 25 MG PO DAILY for Nausea/Vomiting, #1 TAB 0 Refills Quetiapine (Quetiapine) 100 Mg Tab 100 MG PO HS, #30 TAB 0 Refills Traci Figueredo MD Oct 03, 2017 11:16
[2017-10-03 12:00] VITALS: BP 149/75; PULSE 83; RESP 16; TEMP 98.3; O2SAT 93
[2017-10-03] MEDS ORDERED: DOCUSATE SODIUM 50 MG/SENNA 8.6 MG TAB PO SCH (12:00)
[2017-10-03] MEDS ORDERED: MAGNESIUM HYDROXIDE SUSP 30 ML CUP PO PRN (12:00)
[2017-10-03] MEDS ORDERED: SENNOSIDES 8.6 MG TAB PO PRN (12:00)
[2017-10-03] MEDS ORDERED: NALOXONE HCL 0.4 MG/ML AMP IV PUSH PRN (12:00)
[2017-10-03] MEDS ORDERED: LACTULOSE SYRUP 20 GM/30 ML CUP PO PRN (12:00)
[2017-10-03] MEDS ORDERED: BISACODYL 10 MG SUPP RECTAL PRN (12:00)
== END 2017-10-03 14:39 | DRG 552 ==
LOC: PHED 11:17 → PHEDA 15:17 → OBSVTOIN 15:20 → N05A 19:10
PROVIDERS: ADMIT Hospitalist; ATTEND Hospitalist
DX: S22.080A Wedge compression fracture of T11-T12 vertebra, initial encounter for closed fracture (principal); F03.90 Unspecified dementia, unspecified severity, without behavioral disturbance, psychotic disturbance, mood disturbance, and anxiety; F41.9 Anxiety disorder, unspecified; W01.0XXA Fall on same level from slipping, tripping and stumbling without subsequent striking against object, initial encounter; R51 Headache; R11.2 Nausea with vomiting, unspecified; F32.9 Major depressive disorder, single episode, unspecified; S22.040D Wedge compression fracture of fourth thoracic vertebra, subsequent encounter for fracture with routine healing
CPT/HCPCS: 70450; 71045; 72125; 72131; 72146; 73502; 80048; 81001; 85025; J7030; L0150; L0200; L0484; Q0169